=== PATIENT | female | born 1945 | race Caucasian/White ===

== ENCOUNTER 2024-03-01 16:23 | Outpatient (CLI) | payer MEDICARE ==
[2024-03-01 17:41] LABS: #Basophils 0.06 10x3/uL (0.0-0.2); #Eosinphils 0.22 10x3/uL (0.0-0.5); #Monocytes 0.54 10x3/uL (0.0-1.1); #Neutrophils 2.22 10x3/uL (1.5-8.4); %Basophils 1.2 % (0.0-2.0); %Eosinophils 4.2 % (0.0-6.0); %Lymphocytes 41.2 % (18.0-47.0); %Monocytes 10.4 % (0.0-10.0); %Neutrophils 42.6 % (40.0-75.0); Hematocrit 33.7 % (34.9-44.5); Hemoglobin 11.8 g/dL (12.0-15.5); Mean Corpuscular Hemoglobin 33.6 pg (27.0-33.0); Mean Platelet Volume 9.5 fL (7.4-10.4); Platelet Count 254 10x3/uL (150-450); RBC Distribution Width 13.3 % (11.5-14.5); Red Blood Cell (RBC) Count 3.51 10x6/uL (3.90-5.03); White Blood Cell (WBC) Count 5.2 10x3/uL (3.5-10.5)
== END 2024-03-01 16:24 | disposition home or self-care (01) ==
LOC: LABBT 16:23
PROVIDERS: ATTEND Orthopaedic Surgery Hand Surgery
DX: Z01.818 Encounter for other preprocedural examination (principal)
CPT/HCPCS: 85025; 93005; 93010

== ENCOUNTER 2024-03-05 12:52 | Inpatient (IN) | payer MEDICARE ==
[2024-03-05] MEDS ORDERED: Bupivacaine HCl 0.5%/Epinephrine 1:200,000/PF 30 ml Vial ONE (15:10)
[2024-03-05] MEDS ORDERED: Bupivacaine PF 0.5% 30 ML VIAL ONE ×2 (15:16→15:20)
[2024-03-05] MEDS ORDERED: Bacitracin Zinc Ointment 30 gm TUBE ONE (15:20)
[2024-03-05] MEDS ORDERED: Thrombin 5000 UNITS/5 ML VIAL ONE (15:20)
[2024-03-05] MEDS ORDERED: CEFAZOLIN 2 GM VIAL ONE (15:43)
[2024-03-05] MEDS ORDERED: Sodium Chloride 0.9% 100 ML ONE (15:43)
[2024-03-05] MEDS ORDERED: PROPOFOL 20 ML ONE (15:47)
[2024-03-05] MEDS ORDERED: fentaNYL 50 mcg/mL 1 mL Vial ONE (15:47)
[2024-03-05] MEDS ORDERED: ePHEDrine Sulfate 50 MG/10 ML VIAL ONE ×2 (16:00→17:00)
[2024-03-05] MEDS ORDERED: Dexamethasone 20 MG/5 ML VIAL ONE (16:00)
[2024-03-05] MEDS ORDERED: fentaNYL PF 100 MCG/2 ML SYRINGE ONE (17:37)
[2024-03-05] MEDS ORDERED: Ondansetron PF 4 MG/2 ML Vial ONE ×2 (18:03→19:02)
[2024-03-05] MEDS ORDERED: fentaNYL 50 mcg/mL 1 mL Vial SLOW IVP PRN (19:14)
[2024-03-05] MEDS ORDERED: Bisacodyl 10 MG SUPP PR PRN (19:14)
[2024-03-05] MEDS ORDERED: traMADol HCl 50 MG TAB PO PRN (19:14)
[2024-03-05] MEDS ORDERED: Ondansetron PF 4 MG/2 ML Vial SLOW IVP PRN (19:14)
[2024-03-05] MEDS ORDERED: Acetaminophen 325 MG TAB PO PRN (19:14)
[2024-03-05] MEDS ORDERED: Meperidine HCl/PF 25 MG (1 mL) VIAL IM PRN (19:19)
[2024-03-05 21:02] VITALS: BMI 26.5
[2024-03-05] MEDS: Promethazine HCl 25 MG/ML VIAL IM PRN (21:15)
[2024-03-05] MEDS: CEFAZOLIN 1 GM in Sodium Chloride 0.9% 100 ML IVPB SCH (22:06)
[2024-03-05] MEDS: Aspirin 81 mg Enteric Coated Tablet PO SCH (22:07)
[2024-03-05] MEDS: TETANUS, DIPHTHERIA TOX,ADULT (TDVAX) 0.5 ML VIAL IM ONE (22:21)
[2024-03-06] MEDS: Morphine 4 MG/ML VIAL SLOW IVP PRN ×2 (02:34→20:30)
[2024-03-06] MEDS: HYDROcodone/Acetaminophen 5/325 mg Tablet PO PRN (02:37)
[2024-03-06] MEDS ORDERED: Meperidine HCl/PF 25 MG (1 mL) VIAL IM PRN (18:15)
[2024-03-07] MEDS: diphenhydrAMINE 50 MG/ML VIAL IM SCH (07:47)
[2024-03-07 13:57] VITALS: BP 119/64; TEMP 98.3
== END 2024-03-07 17:15 | disposition home or self-care (01) | DRG 502 ==
LOC: SDC 12:52 → SURG B 19:14 → OBSVTOIN 19:14
PROVIDERS: ADMIT Orthopaedic Surgery Hand Surgery; ATTEND Orthopaedic Surgery Hand Surgery
PROC: 0MQ50ZZ Repair Right Wrist Bursa and Ligament, Open Approach (ICD-10-PCS; principal; 2024-03-05)
PROC: 0PSH04Z Reposition Right Radius with Internal Fixation Device, Open Approach (ICD-10-PCS; 2024-03-05)
PROC: 3E033XZ Introduction of Vasopressor into Peripheral Vein, Percutaneous Approach (ICD-10-PCS; 2024-03-05)
DX: S52.501A Unspecified fracture of the lower end of right radius, initial encounter for closed fracture (principal); S52.601A Unspecified fracture of lower end of right ulna, initial encounter for closed fracture; S63.8X1A Sprain of other part of right wrist and hand, initial encounter; S69.91XA Unspecified injury of right wrist, hand and finger(s), initial encounter
CPT/HCPCS: 90714; C1713; J0665; J0690; J1100; J1200; J2270; J2405; J2550; J2704; J3010; J3490

== ENCOUNTER 2025-07-12 13:23 | Outpatient (CLI) | payer MEDICARE | END 2025-07-12 13:24 | disposition home or self-care (01) | LOC: MRI 13:23 | PROVIDERS: ATTEND Orthopaedic Surgery | DX: S82.131A Displaced fracture of medial condyle of right tibia, initial encounter for closed fracture (principal); S83.241A Other tear of medial meniscus, current injury, right knee, initial encounter; M24.19 Other articular cartilage disorders, other specified site ==